=== PATIENT | female | born 1995 | race Caucasian/White ===

== ENCOUNTER 2016-04-16 13:02 | Emergency (ER) | payer OTHER ==
[~2016-04-16] VITALS: Ht 170.2 cm; Wt 69.0 kg
[2016-04-16 13:09] VITALS: BP 118/80; PULSE 105; TEMP 36.7; O2SAT 100; Ht 170.2 cm; Wt 69.0 kg
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
== END 2016-04-16 13:38 | disposition home or self-care (01) ==
LOC: C.EDB 13:05 → C.EDA 13:38
DX: S81.802A Unspecified open wound, left lower leg, initial encounter (principal); W00.0XXA Fall on same level due to ice and snow, initial encounter

== ENCOUNTER 2016-06-08 21:17 | Emergency (ER) | payer OTHER ==
[~2016-06-08] VITALS: Ht 170.2 cm; Wt 70.9 kg
[2016-06-08 21:26] VITALS: TEMP 36.9; O2SAT 100; Ht 170.2 cm; Wt 70.9 kg
[2016-06-08] MEDS ORDERED: FLUO10CA48 PO (21:42)
[2016-06-08] MEDS ORDERED: AMPH20TA2 PO (21:42)
[2016-06-08] MEDS ORDERED: BCTROWC EXT (22:00)
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
[2016-06-08 22:38] VITALS: BP 124/77; PULSE 87
== END 2016-06-08 22:40 | disposition home or self-care (01) ==
LOC: C.EDB 21:18 → C.EDD 22:40
DX: S81.802D Unspecified open wound, left lower leg, subsequent encounter (principal); X58.XXXD Exposure to other specified factors, subsequent encounter; F17.210 Nicotine dependence, cigarettes, uncomplicated; Z79.899 Other long term (current) drug therapy